=== PATIENT | female | born 1930 | race Caucasian/White ===

== ENCOUNTER 2016-08-08 18:28 | Emergency (ER) | payer MEDICARE, BC ==
--- NOTE | 2016-08-08 20:56 | ED ---
Allen Quintero Rebecca, scribed for Chet Portillo MD on 08/08/16 at 1941 . Lower Extremity - HPI Summary HPI Summary: Pt is an 85 y/o F who presents to ED c/o L hip pain s/p mechanical fall. Pt reports falling on the L hip at 1630 today. Pain began immediately s/p fall and has been constant since onset. Pain is discrete to the L hip without radiation. Pain is currently mild, ranked 2/10 and characterized as sharp. Sx aggravated by standing, alleviated by nothing. Denies fever. Confirms ambulation s/p fall. PMHx L hip fx. - History of Current Complaint Chief Complaint: EDHipPelvisInjury Stated Complaint: FALL/LEFT LEG AND HIP PAIN Time Seen by Provider: 08/08/16 19:34 Hx Obtained From: Patient Mechanism Of Injury: Fall From A Standing Position Onset of Pain: Immediate Onset/Duration: Still Present Severity Initially: Mild Severity Currently: Mild Pain Intensity: 2 Pain Scale Used: 0-10 Numeric Timing: Constant Location: Is Discrete @ - L hip Character Of Pain: Sharp Associated Signs And Symptoms: Positive: Negative. Negative: Fever Aggravating Factor(s): Standing Alleviating Factor(s): Nothing Able to Bear Weight: Yes - Allergies/Home Medications Allergies/Adverse Reactions: Allergies Allergy/AdvReac Type Severity Reaction Status Date / Time Cephalexin [From Keflex] Allergy Severe Unknown Verified 01/06/16 07:02 Reaction Details Cefuroxime [From Ceftin] Allergy Intermediate Swelling Verified 01/06/16 07:02 Of Face,Lips,& Throat Oxycodone Allergy Intermediate Hallucinati Verified 01/06/16 07:02 ons Doxycycline Allergy Unknown Rash Verified 01/06/16 07:02 Penicillins [PCN] Allergy Unknown Unknown Verified 01/06/16 07:02 Reaction Details PMH/Surg Hx/FS Hx/Imm Hx Endocrine/Hematology History: Reports: Hx Thyroid Disease - hypothyroid Cardiovascular History: Reports: Hx Hypertension - controlled with meds Respiratory History: Reports: Hx Seasonal Allergies Denies: Other Respiratory Problems/Disorders GI History: Reports: Hx Gastroesophageal Reflux Disease, Hx Hiatal Hernia, Other GI Disorders - hernia Musculoskeletal History: Reports: Hx Arthritis - hands, feet, Hx Osteoporosis, Other Musculoskeletal History - left and right hip fractures Sensory History: Reports: Hx Cataracts - removed with surgery, Hx Contacts or Glasses Denies: Hx Eye Injury, Hx Eye Prosthesis, Hx Glaucoma, Hx Legally Blind, Hx Macular Degeneration, Hx Vision Problem, Hx Deafness, Hx Hearing Aid, Hx Hearing Problem, Other Sensory Impairments Opthamlomology History: Reports: Hx Cataracts - removed with surgery, Hx Contacts or Glasses Denies: Hx Eye Injury, Hx Eye Prosthesis, Hx Glaucoma, Hx Legally Blind, Hx Macular Degeneration, Hx Vision Problem, Other Sensory Impairments - Surgical History Surgery Procedure, Year, and Place: appendectomy; hysterectomy, R hip fracture and repair. left hip fracture and repair. cataracts removed Hx Anesthesia Reactions: No - Immunization History Date of Tetanus Vaccine: up to date Date of Influenza Vaccine: fall 2013 Infectious Disease History: No Infectious Disease History: Denies: Traveled Outside the [place] in Last 30 Days - Family History Known Family History: Positive: Hypertension - Social History Alcohol Use: Rare Substance Use Type: Reports: None Hx Tobacco Use: No Smoking Status (MU): Former Smoker Review of Systems Negative: Fever Positive: Arthralgia - L hip pain s/p mechanical fall All Other Systems Reviewed And Are Negative: Yes Physical Exam Triage Information Reviewed: Yes Vital Signs On Initial Exam: Initial Vitals Temp Pulse Resp BP Pulse Ox 98.4 F 82 18 138/102 97 08/08/16 18:45 08/08/16 18:45 08/08/16 18:45 08/08/16 18:45 08/08/16 18:45 Vital Signs Reviewed: Yes Appearance: Positive: Well-Appearing, No Pain Distress, Thin Skin: Positive: Warm Eyes: Positive: YASIR ENT: Positive: Hearing grossly normal Neck: Positive: Supple Respiratory/Lung Sounds: Positive: Breath Sounds Present Musculoskeletal: Positive: Other - mild lt hip tenderness, no compression rtenderness, no deformity or rotation Neurological: Positive: Alert, Oriented to Person Place, Time Diagnostics - Vital Signs Vital Signs Temp Pulse Resp BP Pulse Ox 08/08/16 18:45 98.4 F 82 18 138/102 97 - Laboratory Lab Statement: Any lab studies that have been ordered have been reviewed, and results considered in the medical decision making process. - Radiology Hip/Pelvis XR Xray Interpretation: No Acute Changes - No fracture of the left hip is noted. Radiology Interpretation Completed By: Radiologist Lower Extremity Course/Dx - Course Assessment/Plan: Pt is an 85 y/o F with a CC of mild L hip pain s/p mechanical fall. Pain began immediately s/p fall at 1630 and has been constant. Denies fever. PMHx L hip fx. Hip/Pelvis XR reveals no acute findings. Pt will be D/C to home with a dx of hip contusion with a followup with her PCP. - Diagnoses Provider Diagnoses: Contusion, hip Discharge - Discharge Plan Condition: Stable Disposition: HOME Patient Education Materials: Hip Contusion (ED) Referrals: Raheel Leach MD [Primary Care Provider] - 3 Days (Follow up with your primary care physician in the next 3 days. ) The documentation as recorded by the Allen bryan Rebecca accurately reflects the service I personally performed and the decisions made by , Chet Portillo MD.
--- NOTE | 2016-08-08 21:25 | RAD ---
Indication: Left hip pain. 2 views of the left hip demonstrates left hip replacement in satisfactory position. No other bone or joint abnormality is noted. IMPRESSION: No fracture of the left hip is noted.
[2016-08-08 21:57] VITALS: BP 128/62
== END 2016-08-08 21:53 | disposition home or self-care (01) ==
LOC: ED 18:28
DX: S70.02XA Contusion of left hip, initial encounter (principal); W18.30XA Fall on same level, unspecified, initial encounter; Z88.5 Allergy status to narcotic agent; Z88.6 Allergy status to analgesic agent; Z88.0 Allergy status to penicillin; Z88.8 Allergy status to other drugs, medicaments and biological substances; E03.9 Hypothyroidism, unspecified; I10 Essential (primary) hypertension; Z87.891 Personal history of nicotine dependence
CPT/HCPCS: 99282

== ENCOUNTER 2017-07-17 19:30 | Emergency (ER) | payer MEDICARE, BC ==
[2017-07-17] MEDS ORDERED: Ibuprofen TAB* 400 MG PO ONE (22:25)
[2017-07-17 22:28] VITALS: BP 158/89
[2017-07-17] MEDS ORDERED: Acetaminop/Codeine 30 MG TAB* 1 TAB (300 MG/30 MG) PO ONE (22:28)
--- NOTE | 2017-07-17 22:35 | UC ---
Respiratory Complaint HPI - HPI Summary HPI Summary: 86 year old female with history of HTN, hypothyroidism, recurrent urinary infections here for cough, congestion and sore throat for 3 days. Reports productive cough with no chest pain or sob. Reports sore throat and cough have partially resolved. Denies fever but reports chills. Of note, patient hit her walker with her left knee 3 weeks ago. pain with ambulation but otherwise no complaints. - History of Current Complaint Chief Complaint: UCRespiratory Stated Complaint: SINUS PAIN,COUGH,L LEG INJURY Time Seen by Provider: 07/17/17 22:08 Hx Obtained From: Patient Onset/Duration: Gradual Onset Severity Initially: Mild Pain Intensity: 0 Character: Cough: Productive Aggravating Factors: Nothing Alleviating Factors: Nothing Associated Signs And Symptoms: Positive: Negative. Negative: Wheezing, Hemoptysis, Calf Pain, Nasal Congestion - Risk Factors Pulmonary Embolism Risk Factors: Negative Cardiac Risk Factors: Hypertension Pseudomonas Risk Factors: Negative - Allergies/Home Medications Allergies/Adverse Reactions: Allergies Allergy/AdvReac Type Severity Reaction Status Date / Time cefuroxime [From Ceftin] Allergy Swelling Verified 07/17/17 19:59 Of Face,Lips,& Throat cephalexin Allergy Unknown Verified 07/17/17 19:59 Reaction Details doxycycline Allergy Rash Verified 07/17/17 19:58 oxycodone Allergy Hallucinati Verified 07/17/17 19:58 ons Penicillins Allergy Unknown Verified 07/17/17 19:58 Reaction Details Home Medications: Home Medications Alendronate (NF) [Fosamax (NF)] 70 mg PO WEEKLY 07/17/17 [History Confirmed ] PMH/Surg Hx/FS Hx/Imm Hx Previously Healthy: No Endocrine History: Thyroid Disease - Surgical History Surgical History: Yes Surgery Procedure, Year, and Place: appendectomy; hysterectomy, R hip fracture and repair. left hip fracture and repair. cataracts removed - Family History Known Family History: Positive: Hypertension - Social History Alcohol Use: Rare Substance Use Type: None Smoking Status (MU): Former Smoker When Did the Patient Quit Smoking/Using Tobacco: quit 20-30 years ago - Immunization History Most Recent Influenza Vaccination: 2013 Most Recent Tetanus Shot: up to date Most Recent Pneumonia Vaccination: up to date Review of Systems Constitutional: Negative Skin: Negative Eyes: Negative ENT: Negative Respiratory: Cough Cardiovascular: Negative Gastrointestinal: Negative Genitourinary: Negative Motor: Negative Neurovascular: Negative Musculoskeletal: Other: - knee pain Neurological: Negative Psychological: Negative Is Patient Immunocompromised?: No All Other Systems Reviewed And Are Negative: Yes Physical Exam Triage Information Reviewed: Yes Appearance: Well-Appearing, No Pain Distress, Well-Nourished Vital Signs: Initial Vital Signs Temp 36.5 C 07/17/17 19:52 Pulse 87 07/17/17 19:52 Resp 16 07/17/17 19:52 BP 165/92 07/17/17 19:52 Pulse Ox 97 07/17/17 19:52 Eye Exam: Normal ENT: Positive: Normal ENT inspection, Hearing grossly normal, Pharyngeal erythema, Nasal congestion, Nasal drainage, TMs normal, Uvula midline. Negative : Tonsillar swelling, Tonsillar exudate, Sinus tenderness Neck: Positive: Supple Respiratory: Positive: Chest non-tender, Lungs clear, Normal breath sounds, No respiratory distress, No accessory muscle use Cardiovascular: Positive: RRR, No Murmur, Pulses Normal Abdomen Description: Positive: Nontender, No Organomegaly Musculoskeletal: Positive: Other: - mild swelling suprapatellar with no tenderness, bruising Psychological Exam: Normal Skin Exam: Normal UC Diagnostic Evaluation - Laboratory O2 Sat by Pulse Oximetry: 95 Respiratory Course/Dx - Course Course Of Treatment: Given history and exam, no concern for sinusitis or any life threatening symptoms. Reassures patient and salt gargle and sinus rinse. Will treat symptomatically. Return precautions given. - Differential Dx/Diagnosis Differential Diagnosis/HQI/PQRI: Bronchitis, Laryngitis, Lower Resp Infection Provider Diagnoses: Pharyngitis Discharge - Discharge Plan Condition: Good Disposition: HOME Prescriptions: Acetaminop/Codeine 30 MG TAB* [Tylenol/Codeine 30 MG TAB*] 1 tab PO DAILY #10 tab MDD 1 guaiFENesin LIQ* [Robitussin*] 10 ml PO Q4H PRN #1 bottle PRN Reason: Cough Patient Education Materials: Pharyngitis (ED) Print Language: KHMER Referrals: Raheel Leach MD [Primary Care Provider] -
== END 2017-07-17 22:49 | disposition home or self-care (01) ==
LOC: UCEAST 19:30
DX: J02.9 Acute pharyngitis, unspecified (principal); I10 Essential (primary) hypertension; E03.9 Hypothyroidism, unspecified; Z87.891 Personal history of nicotine dependence
CPT/HCPCS: 99213; A9270-GY; G0463

== ENCOUNTER 2017-11-24 11:09 | Emergency (ER) | payer BC, MEDICARE ==
[2017-11-24] MEDS ORDERED: Sucralfate TAB* 1 GM PO ONE (11:32)
[2017-11-24 11:49] LABS: ABS Basophils 0 10^3/ul (0-0.2); ABS Eosinophils 0.1 10^3/ul (0-0.6); ABS Lymphocytes 1.5 10^3/ul (1.0-4.8); ABS Monocytes 0.4 10^3/ul (0-0.8); ABS Neutrophils 3.5 10^3/ul (1.5-7.7); ABS Nucleated RBC 0 10^3/ul; Eosinophil % 1.3 % (0-6); Hematocrit 42 % (35-47); Hemoglobin 13.7 g/dl (12.0-16.0); Lymphocyte % 28.1 % (25-47); Mean Corpuscular HGB Conc 33 g/dl (31-36); Mean Corpuscular Hemoglobin 27 pg (27-31); Mean Corpuscular Volume 83 fL (80-97); Mean Platelet Volume 9.2 um3 (7.4-10.4); Nucleated Red Blood Cells % 0.1; Platelet Count 236 10^3/ul (150-450); Red Blood Count 5.04 10^6/ul (4.00-5.40); Red Cell Distribution Width 16 % (10.5-15); White Blood Count 5.5 10^3/ul (3.5-10.8)
[2017-11-24 11:55] LABS: INR 0.93 (0.77-1.02)
[2017-11-24 12:06] LABS: EGFR Non-African American 75.1 (>60)
--- NOTE | 2017-11-24 12:35 | RAD ---
INDICATION: Chest pain. COMPARISON: Comparison is made with a prior chest x-ray study from September 30, 2015. TECHNIQUE: A portable view of the chest was obtained. FINDINGS: Cardiac and mediastinal contours appear to be within normal limits. The lungs are clear. No pleural effusion is seen. Note is made of an old healed fracture of the right posterior seventh rib. IMPRESSION: NO EVIDENCE FOR ACUTE FINDING.
[2017-11-24 13:15] LABS: Urine Appearance Clear; Urine Blood Negative (Negative); Urine Color Colorless; Urine Ketones Negative (Negative); Urine Protein Negative (Negative); Urine Specific Gravity 1.003 (1.010-1.030); Urine Urobilinogen Negative (Negative)
[2017-11-24 15:08] VITALS: BP 143/78
--- NOTE | 2017-11-24 16:20 | ED ---
Marcos Quintero Tariq, scribed for Sujit Pena MD on 11/24/17 at 1124 . HPI Chest Pain - HPI Summary HPI Summary: A 87 y/o female presents to ED c/o chest pain. According to pt, she has had dull mid-sternal chest pain and abdominal pain ("stomach ache") for one day. Currently, her stomach still hurts and the dull aching chest pain persists, as per triage 08/28. She believes she has a bladder infection. Swallowing (drinking water) aggravates the symptoms, however, the pain subsides moment after, "did not have any feeling after". Pt denies any SOB or any pain associated with taking deep breathes, however feels exhausted. As per family, the pt did not feel good today and yesterday compared to the previous weeks. The pt has not been sleeping well lately. Current medications include high blood pressure and thyroid medications. She took all her prescribed medications this morning. - History of Current Complaint Chief Complaint: EDChestPainROMI Time Seen by Provider: 11/24/17 11:18 Hx Obtained From: Patient Onset/Duration: Started Days Ago - 1 day ago, Still Present - Dull aching chest pain and aching abdominal pain Timing: Constant, Lasting Days Initial Severity: Moderate Current Severity: Moderate Pain Intensity: 4 Pain Scale Used: 0-10 Numeric Chest Pain Location: Mid Sternal Chest Pain Radiates: No Character: Dull/Aching Aggravating Factor(s): Nothing Alleviating Factor(s): Nothing Associated Signs and Symptoms: Positive: Chest Pain - Dull/aching, Weakness - Exhausted, Abdominal Pain - Dull/aching. Negative: Shortness of Breath - Additional Pertinent History Primary Care Physician: [id number] - Allergy/Home Medications Allergies/Adverse Reactions: Allergies Allergy/AdvReac Type Severity Reaction Status Date / Time cefuroxime [From Ceftin] Allergy Swelling Verified 11/24/17 11:23 Of Face,Lips,& Throat cephalexin Allergy Unknown Verified 11/24/17 11:23 Reaction Details doxycycline Allergy Rash Verified 11/24/17 11:23 oxycodone Allergy Hallucinati Verified 11/24/17 11:23 ons Penicillins Allergy Unknown Verified 11/24/17 11:23 Reaction Details Home Medications: Home Medications Lisinopril 10 mg PO DAILY 11/24/17 [History Confirmed 11/24/17] PMH/Surg Hx/FS Hx/Imm Hx Endocrine/Hematology History: Reports: Hx Thyroid Disease - hypothyroid Cardiovascular History: Reports: Hx Hypertension - controlled with meds Respiratory History: Reports: Hx Seasonal Allergies Denies: Other Respiratory Problems/Disorders GI History: Reports: Hx Gastroesophageal Reflux Disease, Hx Hiatal Hernia, Other GI Disorders - hernia Musculoskeletal History: Reports: Hx Arthritis - hands, feet, Hx Osteoporosis, Other Musculoskeletal History - left and right hip fractures Sensory History: Reports: Hx Cataracts - removed with surgery, Hx Contacts or Glasses Denies: Hx Eye Injury, Hx Eye Prosthesis, Hx Glaucoma, Hx Legally Blind, Hx Macular Degeneration, Hx Vision Problem, Hx Deafness, Hx Hearing Aid, Hx Hearing Problem, Other Sensory Impairments Opthamlomology History: Reports: Hx Cataracts - removed with surgery, Hx Contacts or Glasses Denies: Hx Eye Injury, Hx Eye Prosthesis, Hx Glaucoma, Hx Legally Blind, Hx Macular Degeneration, Hx Vision Problem, Other Sensory Impairments - Surgical History Surgery Procedure, Year, and Place: appendectomy; hysterectomy, R hip fracture and repair. left hip fracture and repair. cataracts removed Hx Anesthesia Reactions: No - Immunization History Date of Tetanus Vaccine: up to date Date of Influenza Vaccine: fall 2013 Infectious Disease History: No Infectious Disease History: Reports: Hx Shingles Denies: Traveled Outside the [place] in Last 30 Days - Family History Known Family History: Positive: Hypertension - Social History Alcohol Use: Rare Substance Use Type: Reports: None Hx Tobacco Use: No Smoking Status (MU): Former Smoker Review of Systems Positive: Fatigue - Exhausted. Negative: Fever Positive: Chest Pain - Dull/aching Negative: Shortness Of Breath Positive: Abdominal Pain - Dull/aching All Other Systems Reviewed And Are Negative: Yes Physical Exam - Summary Physical Exam Summary: Appearance: The patient is well-nourished in no acute distress and in no acute pain. Skin: The skin is warm and dry and skin color reflects adequate perfusion. HEENT: The head is normocephalic and atraumatic. The pupils are equal and reactive. The conjunctivae are clear and without drainage. Nares are patent and without drainage. Mouth reveals moist mucous membranes and the throat is without erythema and exudate. The external ears are intact. The ear canals are patent and without drainage. The tympanic membranes are intact. Neck: The neck is supple with full range of motion and non-tender. There are no carotid bruits. There is no neck vein distension. Respiratory: Chest is non-tender. Lungs are clear to auscultation and breath sounds are symmetrical and equal. Cardiovascular: Heart is regular rate and rhythm. There is no murmur or rub auscultated. There is no peripheral edema and pulses are symmetrical and equal. Split S1 cardia. Abdomen: Mild tenderness in epigastric region. There are normal bowel sounds heard in all four quadrants and there is no organomegaly palpated. Musculoskeletal: There is no back tenderness noted. Extremities are non-tender with full range of motion. There is good capillary refill. There is no peripheral edema or calf tenderness elicited. Neurological: Patient is alert and oriented to person, place and time. The patient has symmetrical motor strength in all four extremities. Cranial nerves are grossly intact. Deep tendon reflexes are symmetrical and equal in all four extremities. Psychiatric: The patient has an appropriate affect and does not exhibit any anxiety or depression. Triage Information Reviewed: Yes Vital Signs On Initial Exam: Initial Vitals Temp Pulse Resp BP Pulse Ox 98.1 F 87 16 168/110 98 11/24/17 11:15 11/24/17 11:15 11/24/17 11:15 11/24/17 11:15 11/24/17 11:15 Vital Signs Reviewed: Yes Diagnostics - Vital Signs Vital Signs Temp Pulse Resp BP Pulse Ox 11/24/17 11:15 98.1 F 87 16 168/110 98 - Laboratory Lab Results: Lab Results 11/24/17 11/24/17 11/24/17 Range/Units 11:41 11:42 11:42 WBC 5.5 (3.5-10.8) 10^3/ul RBC 5.04 (4.00-5.40) 10^6/ul Hgb 13.7 (12.0-16.0) g/dl Hct 42 (35-47) % MCV 83 (80-97) fL MCH 27 (27-31) pg MCHC 33 (31-36) g/dl RDW 16 H (10.5-15) % Plt Count 236 (150-450) 10^3/ul MPV 9.2 (7.4-10.4) um3 Neut % (Auto) 63.6 (38-83) % Lymph % (Auto) 28.1 (25-47) % [place] % (Auto) 6.4 (0-7) % Eos % (Auto) 1.3 (0-6) % Baso % (Auto) 0.6 (0-2) % Absolute Neuts (auto) 3.5 (1.5-7.7) 10^3/ul Absolute Lymphs (auto) 1.5 (1.0-4.8) 10^3/ul Absolute Monos (auto) 0.4 (0-0.8) 10^3/ul Absolute Eos (auto) 0.1 (0-0.6) 10^3/ul Absolute Basos (auto) 0 (0-0.2) 10^3/ul Absolute Nucleated RBC 0 10^3/ul Nucleated RBC % 0.1 INR (Anticoag Therapy) (0.77-1.02) Sodium 136 (135-145) mmol/L Potassium 3.6 (3.5-5.0) mmol/L Chloride 105 (101-111) mmol/L Carbon Dioxide 24 (22-32) mmol/L Anion Gap 7 (2-11) mmol/L BUN 15 (6-24) mg/dL Creatinine 0.73 (0.51-0.95) mg/dL Est GFR ( Amer) 90.8 (>60) Est GFR (Non-Af Amer) 75.1 (>60) BUN/Creatinine Ratio 20.5 H (8-20) Glucose 111 H (70-100) mg/dL Lactic Acid 0.7 (0.5-2.0) mmol/L Calcium 11.0 H (8.6-10.3) mg/dL Total Bilirubin 0.50 (0.2-1.0) mg/dL AST 13 (13-39) U/L ALT 14 (7-52) U/L Alkaline Phosphatase 60 (34-104) U/L Troponin I 0.01 (<0.04) ng/mL Total Protein 6.1 L (6.4-8.9) g/dL Albumin 3.9 (3.2-5.2) g/dL Globulin 2.2 (2-4) g/dL Albumin/Globulin Ratio 1.8 (1-3) Urine Color Urine Appearance Urine pH (5-9) Ur Specific [place] (1.010-1.030) Urine Protein (Negative) Urine Ketones (Negative) Urine Blood (Negative) Urine Nitrate (Negative) Urine Bilirubin (Negative) Urine Urobilinogen (Negative) Ur Leukocyte Esterase (Negative) Urine WBC (Auto) (Absent) Urine RBC (Auto) (Absent) Ur Squamous Epith Cells (Absent) Urine Bacteria (Absent) Urine Glucose (Negative) 11/24/17 11/24/17 11/24/17 Range/Units 11:42 13:03 14:10 WBC (3.5-10.8) 10^3/ul RBC (4.00-5.40) 10^6/ul Hgb (12.0-16.0) g/dl Hct (35-47) % MCV (80-97) fL MCH (27-31) pg MCHC (31-36) g/dl RDW (10.5-15) % Plt Count (150-450) 10^3/ul MPV (7.4-10.4) um3 Neut % (Auto) (38-83) % Lymph % (Auto) (25-47) % [place] % (Auto) (0-7) % Eos % (Auto) (0-6) % Baso % (Auto) (0-2) % Absolute Neuts (auto) (1.5-7.7) 10^3/ul Absolute Lymphs (auto) (1.0-4.8) 10^3/ul Absolute Monos (auto) (0-0.8) 10^3/ul Absolute Eos (auto) (0-0.6) 10^3/ul Absolute Basos (auto) (0-0.2) 10^3/ul Absolute Nucleated RBC 10^3/ul Nucleated RBC % INR (Anticoag Therapy) 0.93 (0.77-1.02) Sodium (135-145) mmol/L Potassium (3.5-5.0) mmol/L Chloride (101-111) mmol/L Carbon Dioxide (22-32) mmol/L Anion Gap (2-11) mmol/L BUN (6-24) mg/dL Creatinine (0.51-0.95) mg/dL Est GFR ( Amer) (>60) Est GFR (Non-Af Amer) (>60) BUN/Creatinine Ratio (8-20) Glucose (70-100) mg/dL Lactic Acid (0.5-2.0) mmol/L Calcium (8.6-10.3) mg/dL Total Bilirubin (0.2-1.0) mg/dL AST (13-39) U/L ALT (7-52) U/L Alkaline Phosphatase (34-104) U/L Troponin I 0.02 (<0.04) ng/mL Total Protein (6.4-8.9) g/dL Albumin (3.2-5.2) g/dL Globulin (2-4) g/dL Albumin/Globulin Ratio (1-3) Urine Color Colorless Urine Appearance Clear Urine pH 7.0 (5-9) Ur Specific [place] 1.003 L (1.010-1.030) Urine Protein Negative (Negative) Urine Ketones Negative (Negative) Urine Blood Negative (Negative) Urine Nitrate Negative (Negative) Urine Bilirubin Negative (Negative) Urine Urobilinogen Negative (Negative) Ur Leukocyte Esterase Trace A (Negative) Urine WBC (Auto) Trace(0-5/hpf) (Absent) Urine RBC (Auto) Absent (Absent) Ur Squamous Epith Cells Present A (Absent) Urine Bacteria Absent (Absent) Urine Glucose Negative (Negative) Result Diagrams: 11/24/17 11:42 11/24/17 11:42 Lab Statement: Any lab studies that have been ordered have been reviewed, and results considered in the medical decision making process. - Radiology CXR Xray Interpretation: No Acute Changes Radiology Interpretation Completed By: Radiologist - NO EVIDENCE FOR ACUTE FINDING. ED PHYSICIAN REVIEWED THIS RADIOLOGY REPORT. - EKG 1119 Cardiac Rate: NL - 83 BPM EKG Rhythm: Sinus Rhythm EKG Interpretation: LEFT BUNDLE BRANCH BLOCK AND PVC. UNCHANGED SINCE 09/30/2015 EKG Comparison: No Significant Change - 09/30/2015 Re-Evaluation - Re-Evaluation First Eval Re-Evaluation Time: 12:50 Change: Improved Comment: PATIENT IS FEELING BETTER Second Eval Re-Evaluation Time: 14:51 Comment: DISCUSSED DISCHARGE Chest Pain Course/Dx - Course Course Of Treatment: Ms. Cuevas has been without her omeprazole for several days although the prescription was filled today and she took a dose today. For the last couple of days she's had some epigastric/anterior chest pain which now , a couple hours after taking the omeprazole, is a bit improved although still present. She was mildly tender in epigastrium and otherwise nontoxic in appearance with normal vitals. She was kept on the monitor and given sucralfate while labs were obtained including a delayed troponin. She got complete improvement with the sucralfate and her labs were within normal limits and EKG unchanged. I encouraged her to continue to take her omeprazole as previously prescribed and to follow-up with her PCP. - Diagnoses Provider Diagnoses: Chest pain, GERD (gastroesophageal reflux disease) Discharge - Sign-Out/Discharge Documenting (check all that apply): Discharge/Admit/Transfer - DISCHARGE - Discharge Plan Condition: Stable Disposition: HOME Patient Education Materials: Chest Pain (ED), Gastroesophageal Reflux Disease ( ED) Referrals: Raheel Leach MD [Primary Care Provider] - 3 Days (FOLLOW UP WITH PRIMARY CARD PHYSICIAN IN 2-3 DAYS.) Additional Instructions: RETURN TO ED FOR ANY NEW OR WORSENING SYMPTOMS - Billing Disposition and Condition Condition: STABLE Disposition: Home The documentation as recorded by the Marcos bryan Tariq accurately reflects the service I personally performed and the decisions made by me, Sujit Pena MD.
== END 2017-11-24 15:07 | disposition home or self-care (01) ==
LOC: ED 11:09
DX: R07.9 Chest pain, unspecified (principal); K21.9 Gastro-esophageal reflux disease without esophagitis; R53.1 Weakness; I10 Essential (primary) hypertension; Z87.891 Personal history of nicotine dependence; R53.83 Other fatigue; Z88.0 Allergy status to penicillin; Z88.8 Allergy status to other drugs, medicaments and biological substances
CPT/HCPCS: 36415; 71045; 80053; 81003; 81015; 83605; 84484; 85025; 85610; 87086; 93005; 99283; A9270-GY

== ENCOUNTER 2018-07-03 18:59 | Emergency (ER) | payer MEDICARE ==
[2018-07-03] MEDS ORDERED: BENZOIN COMPOUND TINCTURE TOPICAL ONE (21:16)
--- NOTE | 2018-07-03 21:46 | ED ---
Laceration/Wound HPI - HPI Summary HPI Summary: 87-year-old female presents with her daughter for a laceration to her left hand that was caused when her cat scratched her this morning. Patient states that she was attempting to hold her cat while it was being examined by prevent when the scratch occurred. Patient states she cleaned it immediately and also soaked it in a water and salt solution earlier today. Bleeding controlled at the time of presentation. Daughter reports patient is currently taking clindamycin 300 mg 3 times a day for a strep vaginitis. Tetanus status is unknown. Patient does have an appointment scheduled with her PCP tomorrow for follow-up on the strep vaginitis. Denies fever, chills, pain, or purulent drainage. - History of Current Complaint Stated Complaint: THUMB LAC Time Seen by Provider: 07/03/18 20:54 Hx Obtained From: Patient, Family/Laborer Hoisting Pain Intensity: 0 - Additional Pertinent History Primary Care Physician: [id number] - Allergy/Home Medications Allergies/Adverse Reactions: Allergies Allergy/AdvReac Type Severity Reaction Status Date / Time cefuroxime [From Ceftin] Allergy Swelling Verified 07/03/18 19:11 Of Face,Lips,& Throat cephalexin Allergy Unknown Verified 07/03/18 19:11 Reaction Details doxycycline Allergy Rash Verified 07/03/18 19:11 oxycodone Allergy Hallucinati Verified 07/03/18 19:11 ons Penicillins Allergy Unknown Verified 07/03/18 19:11 Reaction Details PMH/Surg Hx/FS Hx/Imm Hx Endocrine/Hematology History: Reports: Hx Thyroid Disease - hypothyroid Cardiovascular History: Reports: Hx Hypertension - controlled with meds Respiratory History: Reports: Hx Seasonal Allergies Denies: Other Respiratory Problems/Disorders GI History: Reports: Hx Gastroesophageal Reflux Disease, Hx Hiatal Hernia, Other GI Disorders - hernia Musculoskeletal History: Reports: Hx Arthritis - hands, feet, Hx Osteoporosis, Other Musculoskeletal History - left and right hip fractures Sensory History: Reports: Hx Cataracts - removed with surgery, Hx Contacts or Glasses Denies: Hx Eye Injury, Hx Eye Prosthesis, Hx Glaucoma, Hx Legally Blind, Hx Macular Degeneration, Hx Vision Problem, Hx Deafness, Hx Hearing Aid, Hx Hearing Problem, Other Sensory Impairments Opthamlomology History: Reports: Hx Cataracts - removed with surgery, Hx Contacts or Glasses Denies: Hx Eye Injury, Hx Eye Prosthesis, Hx Glaucoma, Hx Legally Blind, Hx Macular Degeneration, Hx Vision Problem, Other Sensory Impairments - Surgical History Surgery Procedure, Year, and Place: appendectomy; hysterectomy, R hip fracture and repair. left hip fracture and repair. cataracts removed Hx Anesthesia Reactions: No - Immunization History Date of Tetanus Vaccine: unknown Date of Influenza Vaccine: fall 2013 Infectious Disease History: No Infectious Disease History: Reports: Hx Shingles Denies: Traveled Outside the [place] in Last 30 Days - Family History Known Family History: Positive: Hypertension - Social History Occupation: Retired Lives: With Family Alcohol Use: Rare Substance Use Type: Reports: None Hx Tobacco Use: No Smoking Status (MU): Former Smoker Review of Systems Negative: Fever, Chills Cardiovascular: Negative Respiratory: Negative Gastrointestinal: Negative Genitourinary: Negative Negative: Arthralgia, Decreased ROM Positive: Other - See HPI Neurological: Negative All Other Systems Reviewed And Are Negative: Yes Physical Exam - Summary Physical Exam Summary: GENERAL APPEARANCE: Well developed, well nourished, alert and cooperative elderly female who appears to be in no acute distress. CARDIAC: Normal S1 and S2. No S3, S4 or murmurs. Rhythm is regular. There is no peripheral edema, cyanosis or pallor. Extremities are warm and well perfused. Capillary refill is less than 2 seconds. Peripheral pulses intact. LUNGS: Clear to auscultation without rales, rhonchi, wheezing or diminished breath sounds. ABDOMEN: Positive bowel sounds. Soft, nondistended, nontender. No guarding or rebound. No masses or hepatosplenomegally. MUSKULOSKELETAL: ROM intact to all extremities. No joint erythema or tenderness. Normal muscular development. Gait of old age using walker. BACK: Examination of the spine reveals normal gait and posture, no spinal deformity or tenderness, decreased range of motion or muscular spasm. EXTREMITIES: L-shaped superficial flap laceration measuring 1.5 cm x 0.5 cm to the thenar aspect of the left hand. Bleeding controlled. Mild erythema without purulent discharge. SKIN: Skin normal color, texture and turgor. Triage Information Reviewed: Yes Vital Signs On Initial Exam: Initial Vitals Temp Pulse Resp BP Pulse Ox 98.0 F 84 16 168/85 96 07/03/18 19:05 07/03/18 19:05 07/03/18 19:05 07/03/18 19:05 07/03/18 19:05 Vital Signs Reviewed: Yes Procedures - Procedure Summary Procedure Summary: Procedure note: Laceration repair left hand Informed consent was obtained from the patient before procedure started. The wound was copiously irrigated with tap water. The wound margins were brought into good alignment and (3) 1/4 inch Steri-Strips were used to secure the wound margins. Antibiotic ointment was applied to the wound. A non-stick gauze dressing was applied and secured with roller gauze. Anticipatory guidance, as well as standard post-procedure care was discussed with patient. Return precautions are given. The patient tolerated the procedure well without complications. Patient is to follow up in 1 day for wound check. Diagnostics - Vital Signs Vital Signs Temp Pulse Resp BP Pulse Ox 07/03/18 19:05 98.0 F 84 16 168/85 96 - Laboratory Lab Statement: Any lab studies that have been ordered have been reviewed, and results considered in the medical decision making process. Laceration Repair Course/Dx - Course Course Of Treatment: 87-year-old female presents with her daughter for a laceration to her left hand that was caused when her cat scratched her this morning. Patient states that she was attempting to hold her cat while it was being examined by prevent when the scratch occurred. Patient states she cleaned it immediately and also soaked it in a water and salt solution earlier today. Bleeding controlled at the time of presentation. Daughter reports patient is currently taking clindamycin 300 mg 3 times a day for a strep vaginitis. Tetanus status is unknown. Patient does have an appointment scheduled with her PCP tomorrow for follow-up on the strep vaginitis. Denies fever, chills, pain, or purulent drainage. Afebrile. Hypertensive otherwise vital signs are stable. Exam reveals an older adult female in no acute distress with a L-shaped superficial flap laceration to the thenar aspect of her left hand. There is some mild erythema noted without drainage. Remainder of exam was unremarkable. The wound was thoroughly irrigated with tap water and the laceration was repaired using Steri-Strips. Since patient is already on clindamycin she should be covered appropriately for infection prophylaxis. She is electing to check with her primary care provider tomorrow regarding her tetanus status and will have it updated if needed. Anticipatory guidance and warning symptoms reviewed with the patient and her daughter. Verbalized understanding and agreed with plan of care. - Differential Dx Differental Diagnoses: Cellulitis, Laceration - Clinical Impression Provider Diagnoses: Laceration of left hand, Cat scratch of left hand Discharge - Sign-Out/Discharge Documenting (check all that apply): Patient Departure Patient Received Moderate/Deep Sedation with Procedure: No - Discharge Plan Condition: Stable Disposition: HOME Patient Education Materials: Laceration (ED), Steristrips (ED) Referrals: Raheel Leach MD [Primary Care Provider] - Additional Instructions: Continue taking your clindamycin as prescribed. Check with your primary care provider tomorrow about your tetanus status. If it is been more than 5 years since her last tetanus is should we updated. Keep the dressing that was applied in the ER tonight in place until you follow up with your primary care provider tomorrow. Your laceration was closed using Steri-Strips. These will slowly peel up from the ends and eventually fall off. You may trimly ends if needed but do not pull the Steri-Strip office this may reopen your wound. Gently clean the wound with a mild soap and water at least twice a day. Apply an antibiotic ointment and keep covered with a gauze dressing. You may take [id number] acetaminophen (Tylenol) according directions for any pain. Follow-up with your primary care provider tomorrow as scheduled so that they may recheck the wound. Return to the emergency room if you develop a fever greater than 100.5 F, you have pain that is not managed with acetaminophen, you have redness that spreads , swelling of the hand, pus draining from the wound, or any worsening of symptoms. - Billing Disposition and Condition Condition: STABLE Disposition: Home
[2018-07-03 22:14] VITALS: BP 118/72
== END 2018-07-03 22:12 | disposition home or self-care (01) ==
LOC: ED 18:59
DX: S61.412A Laceration without foreign body of left hand, initial encounter (principal); S60.512A Abrasion of left hand, initial encounter; W55.03XA Scratched by cat, initial encounter; Y92.9 Unspecified place or not applicable; I10 Essential (primary) hypertension; Z88.1 Allergy status to other antibiotic agents; Z88.0 Allergy status to penicillin; Z88.5 Allergy status to narcotic agent; Z87.891 Personal history of nicotine dependence
CPT/HCPCS: 99282